=== PATIENT | male | born 1965 | race Caucasian/White ===

== ENCOUNTER 2019-03-14 16:39 | Emergency (ER) | payer BC ==
[2019-03-14] MEDS ORDERED: Fluorescein 1 MG Ophth Strip EYERT ONE (17:01)
--- NOTE | 2019-03-14 17:24 | EDM.PDOC ---
ED HPI GENERAL MEDICAL PROBLEM - General Chief Complaint: Eye Problems Stated Complaint: R EYE VISION PROBLEMS Time Seen by Provider: 03/14/19 16:48 Source of Information: Reports: Patient History Limitations: Reports: No Limitations - History of Present Illness INITIAL COMMENTS - FREE TEXT/NARRATIVE: The patient presents with right eye irritation and pain He says this started lat night. His eye feels scratchy and almost like there is something in it like an eyelash or dirt. He has not been grinding or welding. He has not had anything go in his eye. He has no vision changes. He had a corneal ulcer before. Onset: Gradual Duration: Day(s): (Last night) Location: Reports: Other (Right eye) Quality: Reports: Burning Severity: Mild Improves with: Reports: None Worsens with: Reports: None Associated Symptoms: Reports: No Other Symptoms Right Eye Pain Score (Numeric/FACES): 3 - Related Data Allergies Allergy/AdvReac Type Severity Reaction Status Date / Time No Known Allergies Allergy Verified 03/14/19 16:47 Home Meds: Home Meds Ciprofloxacin [Ciprofloxacin 0.3% Oph Soln] 1 drop EYERT Q4HR #1 bottle [Rx] FLUoxetine HCl [Prozac] 20 mg PO DAILY 03/14/19 [History] Lisinopril 20 mg PO DAILY 03/14/19 [History] Past Medical History HEENT History: Reports: Other (See Below) Other HEENT History: R corneal ulcer Cardiovascular History: Reports: Hypertension Psychiatric History: Reports: Anxiety - Infectious Disease History Infectious Disease History: Reports: Measles Social & Family History - Family History Family Medical History: Noncontributory - Tobacco Use Smoking Status *Q: Current Every Day Smoker Years of Tobacco use: 40 Packs/Tins Daily: 1.5 - Caffeine Use Caffeine Use: Reports: Coffee - Recreational Drug Use Recreational Drug Use: No ED ROS GENERAL - Review of Systems Review Of Systems: See Below Constitutional: Reports: No Symptoms HEENT: Reports: Eye Pain Respiratory: Reports: No Symptoms Cardiovascular: Reports: No Symptoms Endocrine: Reports: No Symptoms GI/Abdominal: Reports: No Symptoms : Reports: No Symptoms ED EXAM GENERAL W FULL EYE - Physical Exam Exam: See Below Exam Limited By: No Limitations General Appearance: Alert, No Apparent Distress Eye Exam: Bilateral Eye: EOMI, PERRL Eyelids: Right: Lid Everted for Exam, Bilateral: Normal Appearance Conjunctiva & Sclera: Right: Injected Cornea Exam: Right: Corneal Abrasion (Mild to the upper eye) Extraocular Movements: Bilateral: Intact Pupillary Reaction: Bilateral: Brisk Course - Vital Signs Last Recorded V/S: Last Vital Signs Temp 96.8 F 03/14/19 16:44 Pulse 87 03/14/19 16:44 Resp 18 03/14/19 16:44 BP 145/101 H 03/14/19 16:44 Pulse Ox 96 03/14/19 16:44 - Orders/Labs/Meds Meds: Medications Discontinued Medications Generic Name Dose Route Start Last Admin Trade Name Freq PRN Reason Stop Dose Admin Fluorescein Sodium 1 mg 03/14/19 17:01 Ful-Love EYERT 03/14/19 17:02 ONETIME ONE Departure - Departure Time of Disposition: 17:25 Disposition: Home, Self-Care 01 Condition: Good Clinical Impression: Corneal abrasion Qualifiers: Encounter type: initial encounter Laterality: right Qualified Code(s): S05.01XA - Injury of conjunctiva and corneal abrasion without foreign body, right eye, initial encounter - Discharge Information *PRESCRIPTION DRUG MONITORING PROGRAM REVIEWED*: No *COPY OF PRESCRIPTION DRUG MONITORING REPORT IN PATIENT GLENIS: No Prescriptions: Ciprofloxacin [Ciprofloxacin 0.3% Ophth Soln] 1 drop EYERT Q4HR #1 bottle Referrals: PCP,None [Primary Care Provider] - Glynn Ernst MD [Physician] - Additional Instructions: Use the cipro drops 1 drop every 4 hours while awake for 1 week. Follow up with an supervisor sewing department next week if you are not better. Please return if you are worse.
== END 2019-03-14 18:00 | disposition home or self-care (01) ==
LOC: JD.ED 16:39
DX: S05.01XA Injury of conjunctiva and corneal abrasion without foreign body, right eye, initial encounter (principal); I10 Essential (primary) hypertension; F41.9 Anxiety disorder, unspecified; F17.210 Nicotine dependence, cigarettes, uncomplicated; Z79.899 Other long term (current) drug therapy; X58.XXXA Exposure to other specified factors, initial encounter
CPT/HCPCS: 99283

== ENCOUNTER 2023-04-25 10:33 | Emergency (ER) | payer BC, OTHER ==
[2023-04-25] MEDS ORDERED: Lidocaine 1% 10 ML MDV INJECT ONE (11:13)
== END 2023-04-25 11:40 | disposition home or self-care (01) ==
LOC: JD.ED 10:33
DX: S61.211A Laceration without foreign body of left index finger without damage to nail, initial encounter (principal); I10 Essential (primary) hypertension; Z87.891 Personal history of nicotine dependence; W26.0XXA Contact with knife, initial encounter; Z79.899 Other long term (current) drug therapy
CPT/HCPCS: 12001; 99282